=== PATIENT | male | born 1960 | race Caucasian/White ===

== ENCOUNTER 2017-08-14 21:00 | Emergency (ER) | payer MEDICAID ==
[~2017-08-14] VITALS: Ht 172.7 cm; Wt 84.1 kg
[~2017-08-14 21:00] MED LIST: BLEOS OP; IBUP-812 PO; NO HOME MEDS; ONDA8TAB9 PO; ZES10T PO; [UNRECOGNIZED DRUG - CODE] PO
[2017-08-14] MEDS ORDERED: TETanus/Pertussis (Acell)/Diphther VAC/PF (Tdap-Adult) 0.5ml syringe IM ONE (21:25)
[2017-08-14] MEDS ORDERED: morphine 4 MG/ML inj SYRINge IM ONE (21:35)
[2017-08-14] MEDS ORDERED: diphenhydrAMINE 50 mg/ml inj IM ONE (21:50)
[2017-08-14] MEDS ORDERED: CefTRIAXone 250MG IM Kit w/LIDOcaine IM ONE (21:50)
[2017-08-14] MEDS ORDERED: diphenhydrAMINE 50 mg/ml inj IV ONE (22:10)
[2017-08-14] MEDS ORDERED: morphine 4 MG/ML inj SYRINge IV ONE (22:10)
[2017-08-14] MEDS ORDERED: clindamycin 600mg/D5W 50ml 50 ML IV ONE (22:10)
[2017-08-14] MEDS ORDERED: HYDR-3965 PO (22:23)
[2017-08-14] MEDS ORDERED: [UNRECOGNIZED DRUG - OTHER] PO (22:23)
[2017-08-14] MEDS ORDERED: HYDROcodone/acetaminophen 5mg/325mg tablet PO ONE (23:40)
[2017-08-14 23:59] VITALS: BP 172/105
== END 2017-08-15 00:03 | disposition home or self-care (01) ==
LOC: ER 21:02
DX: S92.312B Displaced fracture of first metatarsal bone, left foot, initial encounter for open fracture (principal); I10 Essential (primary) hypertension; F12.10 Cannabis abuse, uncomplicated; F15.10 Other stimulant abuse, uncomplicated; Z88.6 Allergy status to analgesic agent; Z88.0 Allergy status to penicillin; W20.8XXA Other cause of strike by thrown, projected or falling object, initial encounter; Y93.89 Activity, other specified; Y92.89 Other specified places as the place of occurrence of the external cause; Y99.8 Other external cause status
CPT/HCPCS: 73630; 90471; 90715; 96365; 96372; 99284; J0696; J1200; J2270; J3490

== ENCOUNTER 2018-05-04 07:20 | Emergency (ER) | payer MEDICAID ==
[~2018-05-04] VITALS: Ht 172.7 cm; Wt 72.7 kg
[~2018-05-04 07:20] MED LIST changes: +[UNRECOGNIZED DRUG - OTHER] PO
[2018-05-04] MEDS ORDERED: aspirin 81mg tab.chew PO ONE (07:45)
[2018-05-04 08:19] LABS: BASOPHILS % (AUTO) 0.6 % (0-1); EOSINOPHILS # (AUTO) 0.2 X10'3 (0-0.9); EOSINOPHILS % (AUTO) 3.3 % (0-6); HEMATOCRIT 39.6 % (42.0-52.0); MEAN CORPUSCULAR HEMOGLOBIN 29.1 PG (27.0-31.0); MEAN CORPUSCULAR HGB CONC 32.9 % (33.0-36.5); MEAN CORPUSCULAR VOLUME 88.3 FL (78-98); MEAN PLATELET VOLUME 8.4 FL (7.4-10.4); MONOCYTES # (AUTO) 0.4 X10'3 (0-0.9); NEUTROPHILS # (AUTO) 3.6 X10'3 (1.8-7.7); NEUTROPHILS % (AUTO) 68.1 % (42-75); PLATELET COUNT 167 X10'3 (140-440); RED BLOOD COUNT 4.49 X10'6 (4.70-6.10); RED CELL DISTRIBUTION WIDTH 14.6 % (11.5-14.5); WHITE BLOOD COUNT 5.2 X10'3 (4.5-11.0)
[2018-05-04 08:50] LABS: ALANINE AMINOTRANSFERASE 40 U/L (12-78); ALBUMIN 3.3 G/DL (3.4-5.0); ALBUMIN/GLOBULIN RATIO 0.9 (1.1-1.5); ALKALINE PHOSPHATASE 145 IU/L (46-116); ANION GAP 10 (8-16); ASPARTATE AMINO TRANSFERASE 41 U/L (10-37); BILIRUBIN,TOTAL 0.7 MG/DL (0.1-1.0); BLOOD UREA NITROGEN 27 MG/DL (7-18); BUN/CREATININE RATIO 24.5 (5.4-32.0); CALCIUM 8.7 MG/DL (8.5-10.1); CHLORIDE 105 MMOL/L (99-107); GLUCOSE 119 MG/DL (70-104); POTASSIUM 3.9 MMOL/L (3.5-5.1); SODIUM 137 MMOL/L (135-145); TOTAL CARBON DIOXIDE 21.8 MMOL/L (24-32); eGFR 68 ML/MIN
[2018-05-04 08:57] LABS: MAGNESIUM 1.8 MG/DL (1.5-2.4)
[2018-05-04] MEDS ORDERED: furosemide 10 MG/1 ML 10ml inj IV ONE (09:10)
[2018-05-04 09:39] VITALS: BP 150/102
[2018-05-06] MEDS ORDERED: POTA10TA36 PO (22:20)
[2018-05-06] MEDS ORDERED: FURO-150 PO (22:20)
[2018-05-10] MEDS ORDERED: LEVO500T2 PO (13:52)
[2018-05-10] MEDS ORDERED: LISI2.5T2 PO (13:52)
[2018-05-10] MEDS ORDERED: COR3.125T PO (13:52)
[2018-05-10] MEDS ORDERED: NICO-731 TOP (13:52)
[2018-05-10] MEDS ORDERED: ASPI-1071 PO (13:52)
[2018-05-10] MEDS ORDERED: FURO-150 PO (14:02)
== END 2018-05-04 09:41 | disposition home or self-care (01) ==
LOC: ER 07:21
DX: I11.0 Hypertensive heart disease with heart failure (principal); I50.9 Heart failure, unspecified; F12.90 Cannabis use, unspecified, uncomplicated; F15.90 Other stimulant use, unspecified, uncomplicated; F17.200 Nicotine dependence, unspecified, uncomplicated; Z60.2 Problems related to living alone; Z88.0 Allergy status to penicillin; Z88.6 Allergy status to analgesic agent; Z79.899 Other long term (current) drug therapy
CPT/HCPCS: 36415; 71045; 80053; 83735; 83880; 84484; 85025; 87502; 87503; 93005; 99284

== ENCOUNTER 2018-06-19 01:53 | Emergency (ER) | payer MEDICAID ==
[~2018-06-19] VITALS: Ht 167.6 cm; Wt 75.0 kg
[~2018-06-19 01:53] MED LIST changes: +ASPI-1071 PO; -BLEOS OP; +COR3.125T PO; +FURO-150 PO; -IBUP-812 PO; +LISI2.5T2 PO; +NICO-731 TOP; -NO HOME MEDS; -ONDA8TAB9 PO; +POTA10TA36 PO; -ZES10T PO; -[UNRECOGNIZED DRUG - CODE] PO; -[UNRECOGNIZED DRUG - OTHER] PO
--- NOTE | 2018-06-19 02:55 | NUR ---
Pt given ice pack for his left wrist and pillow to elevate it. He reports severe pain of 10 out of 10. states when he first inijured it around 9 pm it did not hurt very bad, but over the fast few hrs it has become severe. Pt awaiting er md.
[2018-06-19] MEDS ORDERED: ibuprofen tablet 400 MG TABLET PO ONE (03:15)
[2018-06-19] MEDS ORDERED: acetaminophen 325mg tablet PO ONE (03:15)
[2018-06-19 03:39] VITALS: BP 147/100
--- NOTE | 2018-06-19 03:53 | NUR ---
Javed called for Pt to have ride back to his storage unit on [facility]. He does not have anyone to transport him for discharge. Pt reports he is still in a lot of pain. Given tylenol and ibuprofen prior to dc. Pt reporting at time of DC that he would like to speak to the doctor again about his home medications. He was discharged at the end of April with many medications and many for his heart and CHF and he has run out of them. He tells me he has an appt soon w/Dr. De Leon to "go over all of the medications". I updated Dr. Green who reports the Pt will need to f/u with PCP for this. Pt with stable vs.
== END 2018-06-19 04:00 | disposition home or self-care (01) ==
LOC: ER 01:54
DX: M25.532 Pain in left wrist (principal); I11.0 Hypertensive heart disease with heart failure; I50.9 Heart failure, unspecified; F12.90 Cannabis use, unspecified, uncomplicated; F15.90 Other stimulant use, unspecified, uncomplicated; Z88.0 Allergy status to penicillin; Z88.5 Allergy status to narcotic agent; Z79.82 Long term (current) use of aspirin; Z79.899 Other long term (current) drug therapy; Z60.2 Problems related to living alone; V29.9XXA Motorcycle rider (driver) (passenger) injured in unspecified traffic accident, initial encounter; Y93.89 Activity, other specified; Y92.488 Other paved roadways as the place of occurrence of the external cause; Y99.8 Other external cause status
CPT/HCPCS: 29125; 73110; 99283

== ENCOUNTER 2018-06-30 04:11 | Emergency (ER) | payer MEDICAID ==
[~2018-06-30] VITALS: Ht 172.7 cm; Wt 68.2 kg
[2018-06-30] MEDS ORDERED: ibuprofen tablet 400 MG TABLET PO ONE (04:45)
[2018-06-30] MEDS ORDERED: sulfamethoxazole/trimethoprim DS (800/160mg) tablet PO ONE (04:45)
[2018-06-30] MEDS ORDERED: SULF1TAB49 PO (04:53)
--- NOTE | 2018-06-30 05:00 | NUR ---
dr vogel lanced left middle finger that appeared to have apus pocket in it
[2018-06-30 05:05] VITALS: BP 134/69
== END 2018-06-30 05:08 | disposition home or self-care (01) ==
LOC: ER 04:11
DX: L02.512 Cutaneous abscess of left hand (principal); I11.0 Hypertensive heart disease with heart failure; I50.9 Heart failure, unspecified; F12.90 Cannabis use, unspecified, uncomplicated; F15.90 Other stimulant use, unspecified, uncomplicated; Z88.6 Allergy status to analgesic agent; Z88.0 Allergy status to penicillin; Z79.82 Long term (current) use of aspirin
CPT/HCPCS: 10060; 26010; 99283

== ENCOUNTER 2018-07-14 16:55 | Emergency (ER) | payer MEDICAID ==
[~2018-07-14] VITALS: Ht 172.7 cm; Wt 70.4 kg
[2018-07-14 18:16] LABS: BASOPHILS % (AUTO) 0.8 % (0-1); EOSINOPHILS # (AUTO) 0.2 X10'3 (0-0.9); EOSINOPHILS % (AUTO) 3.2 % (0-6); HEMATOCRIT 37.9 % (42.0-52.0); HEMOGLOBIN 12.4 g/dl (14.0-17.9); LYMPHOCYTES % (AUTO) 17.4 % (21-51); MEAN CORPUSCULAR HEMOGLOBIN 28.5 PG (27.0-31.0); MEAN CORPUSCULAR HGB CONC 32.7 g/dL (33.0-36.5); MEAN CORPUSCULAR VOLUME 87.1 FL (78-98); MEAN PLATELET VOLUME 7.9 FL (7.4-10.4); MONOCYTES # (AUTO) 0.6 X10'3 (0-0.9); MONOCYTES % (AUTO) 9.7 % (2-12); NEUTROPHILS # (AUTO) 3.9 X10'3 (1.8-7.7); NEUTROPHILS % (AUTO) 68.9 % (42-75); PLATELET COUNT 186 X10'3 (140-440); RED BLOOD COUNT 4.35 X10'6 (4.70-6.10); RED CELL DISTRIBUTION WIDTH 15.7 % (11.5-14.5); WHITE BLOOD COUNT 5.7 X10'3 (4.5-11.0)
[2018-07-14] MEDS ORDERED: nitroGLYCERIN 0.4mg SUBLingual tab SL PRN (18:20)
[2018-07-14] MEDS ORDERED: furosemide 10 MG/1 ML 10ml inj IV ONE (18:20)
[2018-07-14] MEDS ORDERED: aspirin 81mg tab.chew PO ONE (18:25)
[2018-07-14 18:31] LABS: INR 1.1 INR; PARTIAL THROMBOPLASTIN TIME 27 SECONDS (22-32); PROTHROMBIN TIME 11.5 SECONDS (9.0-12.0)
[2018-07-14 18:37] LABS: ALANINE AMINOTRANSFERASE 33 U/L (12-78); ALBUMIN 3.4 G/DL (3.4-5.0); ALBUMIN/GLOBULIN RATIO 0.9 (1.1-1.5); ALKALINE PHOSPHATASE 150 IU/L (46-116); ANION GAP 11 (8-16); ASPARTATE AMINO TRANSFERASE 35 U/L (10-37); BILIRUBIN,TOTAL 1.2 MG/DL (0.1-1.0); BLOOD UREA NITROGEN 21 MG/DL (7-18); BUN/CREATININE RATIO 18.8 (5.4-32.0); CALCIUM 8.4 MG/DL (8.5-10.1); CHLORIDE 106 MMOL/L (99-107); CREATININE 1.12 MG/DL (0.60-1.10); GLUCOSE 110 MG/DL (70-104); SODIUM 142 MMOL/L (135-145); TOTAL CARBON DIOXIDE 25.3 MMOL/L (24-32); eGFR 67 ML/MIN
[2018-07-14] MEDS ORDERED: FURO-150 PO (19:26)
[2018-07-14 19:29] VITALS: BP 155/112
== END 2018-07-14 19:37 | disposition home or self-care (01) ==
LOC: ER 16:55
DX: I11.0 Hypertensive heart disease with heart failure (principal); I50.9 Heart failure, unspecified; F12.90 Cannabis use, unspecified, uncomplicated; F15.90 Other stimulant use, unspecified, uncomplicated; Z88.6 Allergy status to analgesic agent; Z88.0 Allergy status to penicillin; Z79.82 Long term (current) use of aspirin
CPT/HCPCS: 36415; 71045; 80053; 83880; 84484; 85025; 85610; 85730; 93005; 96374; 99284; J1940

== ENCOUNTER 2018-07-25 04:02 | Inpatient (IN) | payer MEDICAID | END 2018-07-30 14:05 | disposition home or self-care (01) | LOC: ER 04:02 → ED HOLD 08:09 → S STAY 12:39 → SUR 3N 16:59 ==

== ENCOUNTER 2019-01-16 22:52 | Emergency (ER) | payer MEDICAID ==
[~2019-01-16] VITALS: Ht 175.3 cm; Wt 65.0 kg
[~2019-01-16 22:52] MED LIST changes: +ALBU6.7H9 INH; -ASPI-1071 PO; +ASPI-611 PO; +CARV6.253 PO; -COR3.125T PO; -NICO-731 TOP
[2019-01-17] MEDS ORDERED: ACET-2615 PO (01:48)
[2019-01-17] MEDS ORDERED: SULF1TAB49 PO (01:48)
[2019-01-17] MEDS ORDERED: ondansetron 4mg rapidly disintigrating tab PO ONE (01:50)
[2019-01-17] MEDS ORDERED: acetaminophen 325mg tablet PO ONE (01:50)
[2019-01-17] MEDS ORDERED: sulfamethoxazole/trimethoprim DS (800/160mg) tablet PO ONE (01:50)
[2019-01-17] MEDS ORDERED: ibuprofen tablet 400 MG TABLET PO ONE (01:50)
[2019-01-17 02:16] VITALS: BP 172/108
== END 2019-01-17 02:15 | disposition home or self-care (01) ==
LOC: ER 22:53
DX: S90.561A Insect bite (nonvenomous), right ankle, initial encounter (principal); L03.115 Cellulitis of right lower limb; I11.0 Hypertensive heart disease with heart failure; I50.9 Heart failure, unspecified; J44.9 Chronic obstructive pulmonary disease, unspecified; F12.90 Cannabis use, unspecified, uncomplicated; F15.90 Other stimulant use, unspecified, uncomplicated; Z86.19 Personal history of other infectious and parasitic diseases; Z60.2 Problems related to living alone; Z88.0 Allergy status to penicillin; Z88.5 Allergy status to narcotic agent; Z79.82 Long term (current) use of aspirin; Z79.899 Other long term (current) drug therapy
CPT/HCPCS: 99284; J2405

== ENCOUNTER 2020-08-02 01:11 | Inpatient (IN) | payer MEDICAID ==
--- NOTE | 2019-08-03 19:00 | NUR ---
received bedside report from mimi rn, pt resting quietly
[~2020-08-02] VITALS: Ht 172.7 cm; Wt 68.2 kg
[2020-08-02 02:02] LABS: ALANINE AMINOTRANSFERASE 35 U/L (12-78); ALBUMIN 3.7 G/DL (3.4-5.0); ALBUMIN/GLOBULIN RATIO 0.9 (1.1-1.5); ALKALINE PHOSPHATASE 133 IU/L (46-116); ANION GAP 7 (8-16); ASPARTATE AMINO TRANSFERASE 38 U/L (10-37); BILIRUBIN,TOTAL 0.8 MG/DL (0.1-1.0); BLOOD UREA NITROGEN 29 MG/DL (7-18); BUN/CREATININE RATIO 24.8 (5.4-32.0); CALCIUM 9.1 MG/DL (8.5-10.1); CHLORIDE 103 MMOL/L (99-107); CREATININE 1.17 MG/DL (0.60-1.10); GLUCOSE 113 MG/DL (70-104); POTASSIUM 4.3 MMOL/L (3.5-5.1); SODIUM 138 MMOL/L (135-145); TOTAL CARBON DIOXIDE 28.1 MMOL/L (24-32); TOTAL PROTEIN 7.6 G/DL (6.4-8.2); eGFR 63 ML/MIN
[2020-08-02 02:10] LABS: BASOPHILS # (AUTO) 0.1 X10'3 (0-0.2); EOSINOPHILS # (AUTO) 0.2 X10'3 (0-0.9); LYMPHOCYTES # (AUTO) 1.3 X10'3 (1.1-4.8); MEAN CORPUSCULAR HGB CONC 33.3 g/dL (33.0-36.5); MEAN PLATELET VOLUME 8.4 FL (7.4-10.4); MONOCYTES # (AUTO) 0.5 X10'3 (0-0.9); MONOCYTES % (AUTO) 8.2 % (2-12); WHITE BLOOD COUNT 5.9 X10'3 (4.5-11.0)
[2020-08-02] MEDS ORDERED: aspirin 81mg tab.chew PO ONE (02:10)
[2020-08-02] MEDS ORDERED: furosemide 10 MG/1 ML 10ml inj IV ONE (02:10)
[2020-08-02 02:12] LABS: BASOPHILS % (AUTO) 1.4 % (0-1); EOSINOPHILS % (AUTO) 2.9 % (0-6); HEMATOCRIT 39.3 % (42.0-52.0); HEMOGLOBIN 13.1 g/dl (14.0-17.9); LYMPHOCYTES % (AUTO) 22.4 % (21-51); MEAN CORPUSCULAR HEMOGLOBIN 29.3 PG (27.0-31.0); NEUTROPHILS # (AUTO) 3.9 X10'3 (1.8-7.7); NEUTROPHILS % (AUTO) 65.1 % (42-75); RED BLOOD COUNT 4.46 X10'6 (4.70-6.10)
[2020-08-02] MEDS ORDERED: furosemide 40mg/4ml inj IV ONE ×2 (02:20→10:10)
[2020-08-02 02:41] LABS: PLATELET COUNT 199 X10'3 (140-440)
[2020-08-02] MEDS ORDERED: potassium Cl 40MEQ/1/2NS 520ml 520 ML IV PRN ×2 (03:30)
[2020-08-02] MEDS ORDERED: mag hydrox/Alum hydrox/simeth 30ml oral suspension PO PRN (03:30)
[2020-08-02] MEDS ORDERED: potassium Cl 20 mEq SR tablet PO PRN ×2 (03:30)
[2020-08-02] MEDS ORDERED: magnesium hydroxide 30ml (MOM) UD suspension PO PRN (03:30)
[2020-08-02] MEDS ORDERED: ondansetron/PF 4mg/2ml inj IV PRN (03:30)
[2020-08-02] MEDS ORDERED: acetaminophen 325mg tablet PO PRN (03:30)
--- NOTE | 2020-08-02 03:46 | NUR ---
Patient sitting up on side of bed. Patient given Lasix 40 mg IV and updated on plan of care. Patient verbalized understanding. patient stated he quit taking his medication because he felt better. Patient denies pain.
--- NOTE | 2020-08-02 04:49 | NUR ---
RN gave report to RN Suha
[2020-08-02 05:16] VITALS: BP 138/98
--- NOTE | 2020-08-02 06:00 | NUR ---
RECEIVED REPORT FROM OSCAR RN, INTRODUCED MYSELF TO PT, UPDATED THE BOARD
[2020-08-02 06:48] VITALS: BP 144/92
[2020-08-02] MEDS: K and/or MAG REPLACEMENT MC SCH ×3 (07:08→20:00)
[2020-08-02] MEDS: carvedilol 6.25mg tablet PO SCH ×2 (07:09→21:10)
[2020-08-02] MEDS: aspirin 81mg tablet.DR PO SCH (07:09)
[2020-08-02] MEDS: potassium chloride 10mEq ER tablet PO SCH (07:09)
[2020-08-02] MEDS ORDERED: lisinopril 2.5mg tablet PO SCH (08:00)
[2020-08-02] MEDS ORDERED: enoxaparin 40mg/0.4ml syringe SUBCUT SCH (08:00)
[2020-08-02] MEDS ORDERED: furosemide 20MG tablet PO SCH (08:00)
[2020-08-02] MEDS ORDERED: enoxaparin 30mg/0.3ml syringe SUBCUT SCH (08:00)
[2020-08-02] MEDS: albuterol 2.5 MG/3 ML nebule NEB SCH ×3 (09:00→21:00)
--- NOTE | 2020-08-02 09:53 | NUR ---
PAGER ID: [phone] MESSAGE: [id number] CALE. PT IS EXTREMELY ANXIOUS. CAN WE HAVE SOMETHING FOR ANXIETY PLEASE. LUBA MCCOY
[2020-08-02] MEDS ORDERED: LORazepam 2 mg/ml vial IV ONE (10:00)
[2020-08-02] MEDS ORDERED: LORazepam 2 mg/ml vial IV PRN (10:00)
[2020-08-02] MEDS ORDERED: magnesium 4gm in 100ml NS 100 ML IV PRN (10:10)
[2020-08-02] MEDS ORDERED: metoprolol tartrate 1mg/ml inj IV PRN (10:10)
[2020-08-02] MEDS ORDERED: magnesium Cl slow-release 64mg tablet PO PRN (10:10)
[2020-08-02] MEDS ORDERED: nitroGLYCERIN 0.4mg SUBLingual tab SL PRN (10:10)
[2020-08-02] MEDS ORDERED: aminophylline 250mg/10ml inj. IV PRN (10:10)
[2020-08-02] MEDS ORDERED: regadenoson 0.4mg/5ml syringe IV PRN (10:10)
--- NOTE | 2020-08-02 10:33 | NUR ---
PAGER ID: [phone] MESSAGE: [id number] MADSENGLORIA BAIRD, THEY CAN NOT DUE STRESS TEST TODAY DUE TO THE PT HAVING CAFFEINE TODAY. MAY THE PT EAT AND BE NPO AFTER MIDNIGHT? PT ALSO RECEIVED FUROSEMIDE THIS MORNING DO YOU STILL WANT ME TO GIVE THE 2ND DOSE OF FUROSEMIDE?
[2020-08-02] MEDS: spironolactone 25 MG tablet PO SCH (10:50)
[2020-08-02 11:26] LABS: CLARITY,URINE CLEAR (Clear); COLOR,URINE YELLOW (Yellow); GLUCOSE, URINE NEGATIVE (Neg); KETONES,URINE NEGATIVE (Neg); LEUKOCYTE ESTERASE ,URINE NEGATIVE (Neg); NITRITES, URINE NEGATIVE (Neg); OCCULT BLOOD,URINE NEGATIVE (Neg); PROTEIN,URINE NEGATIVE (Neg); UROBILINOGEN,URINE 0.2 E.U/dL (0.2-1.0)
[2020-08-02 11:29] VITALS: BP 116/88
[2020-08-02 11:29] LABS: UA COLLECTION TYPE NON-SPECIFIED
[2020-08-02 16:23] VITALS: BP 104/80
[2020-08-02 18:00] VITALS: BP 104/70
[2020-08-02] MEDS: heparin, porcine 5000 units/ml vial SQ SCH (21:10)
[2020-08-02] MEDS: furosemide 40mg/4ml inj IV SCH (21:11)
[2020-08-02 22:00] VITALS: BP 109/66
[2020-08-03] VITALS (13 sets, daily range): BP systolic 92–149; BP diastolic 60–90
[2020-08-03] MEDS: albuterol 2.5 MG/3 ML nebule NEB SCH ×4 (03:00→21:02)
--- NOTE | 2020-08-03 06:11 | NUR ---
received bedside report from evelio rn, pt resting quietly
--- NOTE | 2020-08-03 06:13 | NUR ---
REPORT GIVEN TO AVERY VINSON ,NO ACUTE DISTRESS AT THIS TIME.
[2020-08-03 06:46] LABS: BASOPHILS # (AUTO) 0.1 X10'3 (0-0.2); BASOPHILS % (AUTO) 1.3 % (0-1); EOSINOPHILS # (AUTO) 0.2 X10'3 (0-0.9); EOSINOPHILS % (AUTO) 4.4 % (0-6); HEMATOCRIT 37.8 % (42.0-52.0); HEMOGLOBIN 12.7 g/dl (14.0-17.9); LYMPHOCYTES # (AUTO) 1.2 X10'3 (1.1-4.8); LYMPHOCYTES % (AUTO) 21.6 % (21-51); MEAN CORPUSCULAR HGB CONC 33.7 g/dL (33.0-36.5); MEAN CORPUSCULAR VOLUME 86.1 FL (78-98); MONOCYTES # (AUTO) 0.5 X10'3 (0-0.9); MONOCYTES % (AUTO) 9.2 % (2-12); NEUTROPHILS # (AUTO) 3.5 X10'3 (1.8-7.7); NEUTROPHILS % (AUTO) 63.5 % (42-75); PLATELET COUNT 219 X10'3 (140-440); RED BLOOD COUNT 4.39 X10'6 (4.70-6.10); RED CELL DISTRIBUTION WIDTH 13.7 % (11.5-14.5); WHITE BLOOD COUNT 5.6 X10'3 (4.5-11.0)
[2020-08-03 07:18] LABS: ALANINE AMINOTRANSFERASE 34 U/L (12-78); ALBUMIN 3.2 G/DL (3.4-5.0); ALBUMIN/GLOBULIN RATIO 0.9 (1.1-1.5); ALKALINE PHOSPHATASE 115 IU/L (46-116); ANION GAP 9 (8-16); ASPARTATE AMINO TRANSFERASE 32 U/L (10-37); BILIRUBIN,TOTAL 0.9 MG/DL (0.1-1.0); BLOOD UREA NITROGEN 36 MG/DL (7-18); CALCIUM 8.8 MG/DL (8.5-10.1); CHLORIDE 103 MMOL/L (99-107); CREATININE 1.24 MG/DL (0.60-1.10); GLUCOSE 99 MG/DL (70-104); MAGNESIUM 2.1 MG/DL (1.5-2.4); PHOSPHORUS 4.3 MG/DL (2.3-4.5); POTASSIUM 4.2 MMOL/L (3.5-5.1); SODIUM 140 MMOL/L (135-145); TOTAL CARBON DIOXIDE 27.8 MMOL/L (24-32); TOTAL PROTEIN 6.9 G/DL (6.4-8.2); eGFR 59 ML/MIN
[2020-08-03] MEDS: K and/or MAG REPLACEMENT MC SCH ×4 (07:35→20:00)
[2020-08-03] MEDS: furosemide 40mg/4ml inj IV SCH ×2 (09:07→20:35)
[2020-08-03] MEDS: carvedilol 6.25mg tablet PO SCH ×2 (09:08→20:35)
[2020-08-03] MEDS: aspirin 81mg tablet.DR PO SCH (09:08)
[2020-08-03] MEDS: heparin, porcine 5000 units/ml vial SQ SCH ×2 (09:08→20:35)
[2020-08-03] MEDS: potassium chloride 10mEq ER tablet PO SCH (09:08)
[2020-08-03] MEDS: spironolactone 25 MG tablet PO SCH (09:08)
[2020-08-03] MEDS: lisinopril 20mg tablet PO SCH (09:09)
--- NOTE | 2020-08-03 12:11 | NUR ---
spoke with pt about his life vest and pt stated that he was told to send it back. Pt's dc orders are on hold until pt receives a new life vest per Dr Covarrubias. Dee in case management was notified and she stated that it would probably be tomorrow before they could get him a new life vest.
[2020-08-04 02:00] VITALS: BP 113/74
[2020-08-04] MEDS: albuterol 2.5 MG/3 ML nebule NEB SCH ×4 (03:23→20:49)
--- NOTE | 2020-08-04 06:02 | NUR ---
patient alert and oriented. resting on bed quietly. request breathing treatment during shift.
--- NOTE | 2020-08-04 06:51 | NUR ---
RECEIVED BEDSIDE REPORT FROM KAIA VARELA
[2020-08-04 06:56] LABS: BASOPHILS # (AUTO) 0.1 X10'3 (0-0.2); BASOPHILS % (AUTO) 1.8 % (0-1); EOSINOPHILS # (AUTO) 0.2 X10'3 (0-0.9); EOSINOPHILS % (AUTO) 4.3 % (0-6); HEMATOCRIT 37.4 % (42.0-52.0); HEMOGLOBIN 12.6 g/dl (14.0-17.9); LYMPHOCYTES # (AUTO) 1.3 X10'3 (1.1-4.8); LYMPHOCYTES % (AUTO) 23.8 % (21-51); MEAN CORPUSCULAR HEMOGLOBIN 28.9 PG (27.0-31.0); MEAN CORPUSCULAR HGB CONC 33.7 g/dL (33.0-36.5); MEAN CORPUSCULAR VOLUME 85.9 FL (78-98); MEAN PLATELET VOLUME 7.7 FL (7.4-10.4); MONOCYTES # (AUTO) 0.6 X10'3 (0-0.9); NEUTROPHILS # (AUTO) 3.2 X10'3 (1.8-7.7); NEUTROPHILS % (AUTO) 59.1 % (42-75); PLATELET COUNT 223 X10'3 (140-440); RED BLOOD COUNT 4.36 X10'6 (4.70-6.10); RED CELL DISTRIBUTION WIDTH 13.9 % (11.5-14.5); WHITE BLOOD COUNT 5.4 X10'3 (4.5-11.0)
[2020-08-04 07:07] VITALS: BP 115/85
[2020-08-04 07:11] LABS: ALANINE AMINOTRANSFERASE 33 U/L (12-78); ALBUMIN 3.3 G/DL (3.4-5.0); ALBUMIN/GLOBULIN RATIO 0.9 (1.1-1.5); ALKALINE PHOSPHATASE 111 IU/L (46-116); ANION GAP 8 (8-16); ASPARTATE AMINO TRANSFERASE 35 U/L (10-37); BILIRUBIN,TOTAL 0.8 MG/DL (0.1-1.0); BLOOD UREA NITROGEN 43 MG/DL (7-18); BUN/CREATININE RATIO 33.1 (5.4-32.0); CALCIUM 8.8 MG/DL (8.5-10.1); CHLORIDE 102 MMOL/L (99-107); GLUCOSE 103 MG/DL (70-104); MAGNESIUM 2.1 MG/DL (1.5-2.4); PHOSPHORUS 4.3 MG/DL (2.3-4.5); POTASSIUM 4.2 MMOL/L (3.5-5.1); SODIUM 138 MMOL/L (135-145); TOTAL CARBON DIOXIDE 28.1 MMOL/L (24-32); eGFR 56 ML/MIN
[2020-08-04] MEDS: K and/or MAG REPLACEMENT MC SCH ×4 (07:17→20:00)
--- NOTE | 2020-08-04 07:27 | NUR ---
PAGER ID: [phone] MESSAGE: [phone] CALE BAIRD IS REQUESTING A NICOTINE PATCH
[2020-08-04] MEDS: aspirin 81mg tablet.DR PO SCH (08:10)
[2020-08-04] MEDS: potassium chloride 10mEq ER tablet PO SCH (08:11)
[2020-08-04] MEDS: spironolactone 25 MG tablet PO SCH (08:11)
[2020-08-04] MEDS: lisinopril 20mg tablet PO SCH (08:11)
[2020-08-04] MEDS: carvedilol 6.25mg tablet PO SCH ×2 (08:11→21:13)
[2020-08-04] MEDS: furosemide 40mg/4ml inj IV SCH ×2 (08:11→21:13)
[2020-08-04] MEDS: heparin, porcine 5000 units/ml vial SQ SCH ×2 (08:12→21:13)
[2020-08-04] MEDS: nicotine 14mg patch - 24hr TD SCH (11:04)
[2020-08-04 12:00] VITALS: BP 103/73
[2020-08-04 16:00] VITALS: BP 105/77
[2020-08-04 18:00] VITALS: BP 115/75
--- NOTE | 2020-08-04 18:40 | NUR ---
REPORT RECEIVED FROM AVERY VINSON. QUESTIONS ANSWERED AND PT RESTING QUIETLY ON BED
[2020-08-04 22:00] VITALS: BP 102/68
[2020-08-05 02:00] VITALS: BP 108/75
[2020-08-05] MEDS: albuterol 2.5 MG/3 ML nebule NEB SCH (03:00)
--- NOTE | 2020-08-05 06:31 | NUR ---
report given to AVERY Camacho. pt alert and oriented. no acute distress
--- NOTE | 2020-08-05 06:31 | NUR ---
Patient in room PCU 3012. I have received report from AVERY Borden and had the opportunity to ask questions and assume patient care. Patient awake in bed and in no acute distress.
[2020-08-05 07:00] VITALS: BP 111/80
[2020-08-05] MEDS: heparin, porcine 5000 units/ml vial SQ SCH (07:37)
[2020-08-05] MEDS: nicotine 14mg patch - 24hr TD SCH (07:37)
[2020-08-05] MEDS: furosemide 40mg/4ml inj IV SCH (07:37)
[2020-08-05] MEDS: lisinopril 20mg tablet PO SCH (07:38)
[2020-08-05] MEDS: aspirin 81mg tablet.DR PO SCH (07:38)
[2020-08-05 07:39] VITALS: BP_SYST 120
[2020-08-05] MEDS: carvedilol 6.25mg tablet PO SCH (07:39)
[2020-08-05] MEDS: spironolactone 25 MG tablet PO SCH (07:39)
[2020-08-05] MEDS: potassium chloride 10mEq ER tablet PO SCH (07:39)
[2020-08-05 07:56] LABS: BASOPHILS # (AUTO) 0.1 X10'3 (0-0.2); EOSINOPHILS # (AUTO) 0.2 X10'3 (0-0.9); HEMATOCRIT 40.1 % (42.0-52.0); HEMOGLOBIN 13.2 g/dl (14.0-17.9); LYMPHOCYTES # (AUTO) 1.2 X10'3 (1.1-4.8); LYMPHOCYTES % (AUTO) 19.9 % (21-51); MEAN CORPUSCULAR HEMOGLOBIN 28.5 PG (27.0-31.0); MEAN CORPUSCULAR VOLUME 86.4 FL (78-98); MEAN PLATELET VOLUME 8.4 FL (7.4-10.4); MONOCYTES # (AUTO) 0.7 X10'3 (0-0.9); MONOCYTES % (AUTO) 12.3 % (2-12); NEUTROPHILS # (AUTO) 3.8 X10'3 (1.8-7.7); NEUTROPHILS % (AUTO) 62.8 % (42-75); PLATELET COUNT 271 X10'3 (140-440); RED BLOOD COUNT 4.64 X10'6 (4.70-6.10); RED CELL DISTRIBUTION WIDTH 13.9 % (11.5-14.5); WHITE BLOOD COUNT 6.1 X10'3 (4.5-11.0)
[2020-08-05] MEDS: K and/or MAG REPLACEMENT MC SCH ×2 (08:00)
[2020-08-05 08:44] LABS: ALANINE AMINOTRANSFERASE 38 U/L (12-78); ALBUMIN 3.4 G/DL (3.4-5.0); ALBUMIN/GLOBULIN RATIO 0.9 (1.1-1.5); ALKALINE PHOSPHATASE 113 IU/L (46-116); ANION GAP 6 (8-16); ASPARTATE AMINO TRANSFERASE 39 U/L (10-37); BILIRUBIN,TOTAL 0.7 MG/DL (0.1-1.0); BLOOD UREA NITROGEN 46 MG/DL (7-18); BUN/CREATININE RATIO 34.3 (5.4-32.0); CALCIUM 9.1 MG/DL (8.5-10.1); CHLORIDE 101 MMOL/L (99-107); CREATININE 1.34 MG/DL (0.60-1.10); GLUCOSE 97 MG/DL (70-104); MAGNESIUM 2.4 MG/DL (1.5-2.4); PHOSPHORUS 4.8 MG/DL (2.3-4.5); SODIUM 137 MMOL/L (135-145); TOTAL CARBON DIOXIDE 29.8 MMOL/L (24-32); TOTAL PROTEIN 7.3 G/DL (6.4-8.2); eGFR 54 ML/MIN
--- NOTE | 2020-08-05 12:36 | NUR ---
Patient stable for discharge per MD orders. All discharge instructions reviewed and questions answered appropriately. Belongings collected and sent with the patient. Patient educated on LifeVest prior to discharge. No new prescriptions. PIV discontinued and cannula intact. tow motor mechanic discontinued. Patient left via wheelchair and was wheeled down to the lobby and left via private vehicle.
--- NOTE | 2020-08-06 15:27 | NUR ---
CASE MANAGEMENT DISCHARGE FOLLOW UP: T/c to pt, spoke with Spencer. He states that pt is out at the moment, left message requesting callback, advised that if pt requires medical assistance to contact PCP or ED, Spencer states he will pass the message along. Addendum: 08/06/20 at 1600 by Sonali Smith RN [id number] Received return call from pt. Reports that he is feeling "not too bad," admits to some SOB; denies CP, fever. Verbalizes understanding of s/sx requiring further evaluation/emergent assistance. Verbalizes understanding of current medications, states that he does not have them anymore since he has not taken them in a while, states that he was not given new medications at discharged, will follow up. Verbalizes compliance with MD discharge instructions, wearing LifeVest as instructed. Verbalizes understanding of the importance in making/keeping follow-up appointments, states that he has been having problems with his PCP and wants to get a new one. 1547 T/c to Dr Covarrubias, she states pt needs to f/u with PCP and counseling department chair for medications. [address] Covarrubias's instructions, he verbalizes understanding. States no further questions at this time. Advised pt that if he experiences CP, increasing SOB/difficulty breathing to seek emergent care, pt states verbalizes understanding.
== END 2020-08-05 12:36 | disposition home or self-care (01) | DRG 194 ==
LOC: ER 01:12 → ED HOLD 03:29 → PCU 3S 04:30
PROVIDERS: ADMIT Internal Medicine; ATTEND Family Medicine
PROC: 4A02XM4 Measurement of Cardiac Total Activity, External Approach (ICD-10-PCS; principal; 2020-08-03)
PROC: 3E073KZ Introduction of Other Diagnostic Substance into Coronary Artery, Percutaneous Approach (ICD-10-PCS; 2020-08-03)
DX: I13.0 Hypertensive heart and chronic kidney disease with heart failure and stage 1 through stage 4 chronic kidney disease, or unspecified chronic kidney disease (principal); I21.A1 Myocardial infarction type 2; I50.23 Acute on chronic systolic (congestive) heart failure; J44.9 Chronic obstructive pulmonary disease, unspecified; N17.9 Acute kidney failure, unspecified; N18.9 Chronic kidney disease, unspecified; B19.20 Unspecified viral hepatitis C without hepatic coma; F15.10 Other stimulant abuse, uncomplicated; F17.200 Nicotine dependence, unspecified, uncomplicated; Z20.822 Contact with and (suspected) exposure to COVID-19; Z91.14 Patient's other noncompliance with medication regimen; Z88.0 Allergy status to penicillin; Z88.5 Allergy status to narcotic agent; Z79.899 Other long term (current) drug therapy; Z79.82 Long term (current) use of aspirin
CPT/HCPCS: 36415; 71045; 78452; 80053; 81003; 83735; 83880; 84100; 84484; 85025; 87081; 87635; 93005; 93017; 93306; 93308; 94640; 94760; 96374; 99285; A9500; C9803; G0378; J1644; J1650; J1940; J2060; J2785

== ENCOUNTER 2020-08-13 20:36 | Inpatient (IN) | payer MEDICAID ==
[~2020-08-13] VITALS: Ht 172.7 cm; Wt 68.2 kg
[2020-08-13 21:17] LABS: ALANINE AMINOTRANSFERASE 48 U/L (12-78); ALBUMIN 3.9 G/DL (3.4-5.0); ALBUMIN/GLOBULIN RATIO 0.9 (1.1-1.5); ALKALINE PHOSPHATASE 139 IU/L (46-116); ANION GAP 11 (8-16); ASPARTATE AMINO TRANSFERASE 46 U/L (10-37); BILIRUBIN,TOTAL 1.3 MG/DL (0.1-1.0); BLOOD UREA NITROGEN 35 MG/DL (7-18); BUN/CREATININE RATIO 25.2 (5.4-32.0); CALCIUM 9.2 MG/DL (8.5-10.1); CHLORIDE 103 MMOL/L (99-107); CREATININE 1.39 MG/DL (0.60-1.10); GLUCOSE 150 MG/DL (70-104); POTASSIUM 4.1 MMOL/L (3.5-5.1); SODIUM 139 MMOL/L (135-145); TOTAL CARBON DIOXIDE 25.5 MMOL/L (24-32); TOTAL PROTEIN 8.1 G/DL (6.4-8.2); eGFR 52 ML/MIN
[2020-08-13 21:18] LABS: BASOPHILS # (AUTO) 0.1 X10'3 (0-0.2); EOSINOPHILS # (AUTO) 0.1 X10'3 (0-0.9); EOSINOPHILS % (AUTO) 1.2 % (0-6); HEMATOCRIT 40.6 % (42.0-52.0); HEMOGLOBIN 13.5 g/dl (14.0-17.9); LYMPHOCYTES # (AUTO) 1.3 X10'3 (1.1-4.8); LYMPHOCYTES % (AUTO) 18.1 % (21-51); MEAN CORPUSCULAR HEMOGLOBIN 28.8 PG (27.0-31.0); MEAN CORPUSCULAR HGB CONC 33.3 g/dL (33.0-36.5); MEAN CORPUSCULAR VOLUME 86.4 FL (78-98); MONOCYTES # (AUTO) 0.6 X10'3 (0-0.9); MONOCYTES % (AUTO) 8.1 % (2-12); NEUTROPHILS # (AUTO) 5.1 X10'3 (1.8-7.7); NEUTROPHILS % (AUTO) 71.6 % (42-75); PLATELET COUNT 207 X10'3 (140-440); RED CELL DISTRIBUTION WIDTH 14.1 % (11.5-14.5); WHITE BLOOD COUNT 7.2 X10'3 (4.5-11.0)
[2020-08-13 22:53] LABS: ETHANOL < 0.010 GM/DL (0.0-0.010)
[2020-08-13 23:06] LABS: URINE AMPHETAMINE SCREEN POSITIVE (Neg); URINE BARBITUATE SCREEN NEGATIVE (Neg); URINE BENZODIAZEPINES SCREEN NEGATIVE (Neg); URINE CANNABINOID SCREEN NEGATIVE (Neg); URINE COCAINE SCREEN NEGATIVE (Neg); URINE METHADONE SCREEN NEGATIVE (Neg); URINE OPIATE SCREEN NEGATIVE (Neg); URINE PHENCYCLIDINE SCREEN NEGATIVE (Neg)
[2020-08-14] VITALS (7 sets, daily range): BP systolic 97–127; BP diastolic 63–97
[2020-08-14] MEDS ORDERED: aspirin 81mg tab.chew PO ONE (00:05)
[2020-08-14] MEDS ORDERED: furosemide 10 MG/1 ML 10ml inj IV ONE (00:05)
[2020-08-14] MEDS ORDERED: carvedilol 6.25mg tablet PO SCH (00:05)
[2020-08-14] MEDS ORDERED: acetaminophen 325mg tablet PO PRN (00:10)
[2020-08-14] MEDS ORDERED: potassium Cl 40MEQ/1/2NS 520ml 520 ML IV PRN ×2 (00:10)
[2020-08-14] MEDS ORDERED: ondansetron/PF 4mg/2ml inj IV PRN (00:10)
[2020-08-14] MEDS ORDERED: magnesium hydroxide 30ml (MOM) UD suspension PO PRN (00:10)
[2020-08-14] MEDS ORDERED: mag hydrox/Alum hydrox/simeth 30ml oral suspension PO PRN (00:10)
[2020-08-14] MEDS ORDERED: magnesium 2GM in 50ml NS 50 ML IV PRN (00:10)
[2020-08-14] MEDS ORDERED: potassium Cl 20 mEq SR tablet PO PRN ×2 (00:10)
[2020-08-14] MEDS ORDERED: magnesium 4gm in 100ml NS 100 ML IV PRN (00:10)
[2020-08-14] MEDS ORDERED: magnesium Cl slow-release 64mg tablet PO PRN (00:10)
[2020-08-14] MEDS ORDERED: lisinopril 2.5mg tablet PO ONE (00:20)
[2020-08-14 00:32] LABS: PARTIAL THROMBOPLASTIN TIME 27 SECONDS (22-32)
--- NOTE | 2020-08-14 06:33 | NUR ---
Patient in room PCU 3016. I have received report from Arlette VARELA and had the opportunity to ask questions and assume patient care.
--- NOTE | 2020-08-14 06:33 | NUR ---
Patient in room PCU 3016. I have received report from AVERY Chong and had the opportunity to ask questions and assume patient care.
[2020-08-14] MEDS: carvedilol 6.25mg tablet PO SCH ×2 (07:44→20:18)
[2020-08-14] MEDS: furosemide 20MG tablet PO SCH (07:44)
[2020-08-14] MEDS: aspirin 81mg tablet.DR PO SCH (07:44)
[2020-08-14] MEDS: lisinopril 2.5mg tablet PO SCH (07:44)
[2020-08-14] MEDS: K and/or MAG REPLACEMENT MC SCH ×2 (08:00→20:00)
--- NOTE | 2020-08-14 08:59 | NUR ---
Dr. Olivia unable to find primary nurse chele. Received Verbal order for magnesium lab draw as patient is pacing room having cramps.
[2020-08-14] MEDS ORDERED: albuterol 2.5 MG/3 ML nebule NEB SCH (09:00)
[2020-08-14] MEDS ORDERED: cyclobenzaprine 10mg tablet PO PRN (17:40)
--- NOTE | 2020-08-14 18:16 | NUR ---
Problems reprioritized. Patient report given, questions answered & plan of care reviewed with Arlette VARELA.
[2020-08-14] MEDS: HYDROcodone/acetaminophen 5mg/325mg tablet PO PRN (23:26)
[2020-08-15 02:00] VITALS: BP 110/81
--- NOTE | 2020-08-15 06:00 | NUR ---
Patient in room PCU 3016. I have received report from AVERY Chong and had the opportunity to ask questions and assume patient care.
--- NOTE | 2020-08-15 06:21 | NUR ---
Problems reprioritized. Patient report given, questions answered & plan of care reviewed with ANITA.
--- NOTE | 2020-08-15 06:26 | NUR ---
Patient in room PCU 3016. I have received report from Arlette VARELA and had the opportunity to ask questions and assume patient care.
[2020-08-15 07:00] VITALS: BP 111/77
[2020-08-15 07:10] LABS: BASOPHILS # (AUTO) 0.1 X10'3 (0-0.2); BASOPHILS % (AUTO) 1.3 % (0-1); EOSINOPHILS # (AUTO) 0.2 X10'3 (0-0.9); EOSINOPHILS % (AUTO) 3.8 % (0-6); HEMATOCRIT 35.8 % (42.0-52.0); LYMPHOCYTES # (AUTO) 1.4 X10'3 (1.1-4.8); LYMPHOCYTES % (AUTO) 24.7 % (21-51); MEAN CORPUSCULAR HEMOGLOBIN 28.9 PG (27.0-31.0); MEAN CORPUSCULAR HGB CONC 33.6 g/dL (33.0-36.5); MONOCYTES # (AUTO) 0.5 X10'3 (0-0.9); MONOCYTES % (AUTO) 8.4 % (2-12); NEUTROPHILS # (AUTO) 3.5 X10'3 (1.8-7.7); NEUTROPHILS % (AUTO) 61.8 % (42-75); PLATELET COUNT 200 X10'3 (140-440); RED BLOOD COUNT 4.16 X10'6 (4.70-6.10); RED CELL DISTRIBUTION WIDTH 13.8 % (11.5-14.5); WHITE BLOOD COUNT 5.6 X10'3 (4.5-11.0)
[2020-08-15 07:17] LABS: ALANINE AMINOTRANSFERASE 40 U/L (12-78); ALBUMIN/GLOBULIN RATIO 0.8 (1.1-1.5); ALKALINE PHOSPHATASE 119 IU/L (46-116); ANION GAP 7 (8-16); ASPARTATE AMINO TRANSFERASE 35 U/L (10-37); BILIRUBIN,TOTAL 0.7 MG/DL (0.1-1.0); BLOOD UREA NITROGEN 31 MG/DL (7-18); BUN/CREATININE RATIO 25.8 (5.4-32.0); CALCIUM 8.5 MG/DL (8.5-10.1); CHLORIDE 105 MMOL/L (99-107); GLUCOSE 97 MG/DL (70-104); MAGNESIUM 1.9 MG/DL (1.5-2.4); POTASSIUM 4.2 MMOL/L (3.5-5.1); SODIUM 140 MMOL/L (135-145); TOTAL CARBON DIOXIDE 28.2 MMOL/L (24-32); TOTAL PROTEIN 6.7 G/DL (6.4-8.2); eGFR 61 ML/MIN
[2020-08-15] MEDS: K and/or MAG REPLACEMENT MC SCH ×2 (08:00→20:17)
[2020-08-15] MEDS: aspirin 81mg tablet.DR PO SCH (08:41)
[2020-08-15] MEDS: furosemide 20MG tablet PO SCH (08:41)
[2020-08-15] MEDS: lisinopril 2.5mg tablet PO SCH (08:42)
[2020-08-15] MEDS: carvedilol 6.25mg tablet PO SCH ×2 (08:42→20:16)
[2020-08-15 11:00] VITALS: BP 97/64
[2020-08-15 15:00] VITALS: BP 114/81
[2020-08-15 18:00] VITALS: BP 123/77
--- NOTE | 2020-08-15 18:27 | NUR ---
Problems reprioritized. Patient report given, questions answered & plan of care reviewed with Mason VARELA.
[2020-08-15 22:00] VITALS: BP 120/88
[2020-08-15] MEDS: HYDROcodone/acetaminophen 5mg/325mg tablet PO PRN (22:22)
[2020-08-16 02:00] VITALS: BP 116/67
--- NOTE | 2020-08-16 06:00 | NUR ---
Patient in room PCU 3016. I have received report from AVERY Cuevas and had the opportunity to ask questions and assume patient care.
[2020-08-16 07:00] VITALS: BP 121/86
[2020-08-16 07:00] LABS: BASOPHILS # (AUTO) 0.1 X10'3 (0-0.2); BASOPHILS % (AUTO) 1.3 % (0-1); EOSINOPHILS # (AUTO) 0.2 X10'3 (0-0.9); EOSINOPHILS % (AUTO) 3.8 % (0-6); HEMATOCRIT 36.7 % (42.0-52.0); HEMOGLOBIN 12.3 g/dl (14.0-17.9); LYMPHOCYTES # (AUTO) 1.4 X10'3 (1.1-4.8); LYMPHOCYTES % (AUTO) 26.7 % (21-51); MEAN CORPUSCULAR HEMOGLOBIN 28.8 PG (27.0-31.0); MEAN CORPUSCULAR HGB CONC 33.4 g/dL (33.0-36.5); MEAN CORPUSCULAR VOLUME 86.3 FL (78-98); MONOCYTES # (AUTO) 0.5 X10'3 (0-0.9); MONOCYTES % (AUTO) 9.7 % (2-12); NEUTROPHILS % (AUTO) 58.5 % (42-75); PLATELET COUNT 203 X10'3 (140-440); RED BLOOD COUNT 4.25 X10'6 (4.70-6.10); RED CELL DISTRIBUTION WIDTH 14.2 % (11.5-14.5); WHITE BLOOD COUNT 5.1 X10'3 (4.5-11.0)
[2020-08-16 07:44] LABS: ALANINE AMINOTRANSFERASE 37 U/L (12-78); ALBUMIN 3.2 G/DL (3.4-5.0); ALBUMIN/GLOBULIN RATIO 0.8 (1.1-1.5); ALKALINE PHOSPHATASE 122 IU/L (46-116); ANION GAP 10 (8-16); ASPARTATE AMINO TRANSFERASE 30 U/L (10-37); BILIRUBIN,TOTAL 0.5 MG/DL (0.1-1.0); BLOOD UREA NITROGEN 29 MG/DL (7-18); BUN/CREATININE RATIO 25.4 (5.4-32.0); CALCIUM 8.5 MG/DL (8.5-10.1); CHLORIDE 105 MMOL/L (99-107); CREATININE 1.14 MG/DL (0.60-1.10); GLUCOSE 100 MG/DL (70-104); MAGNESIUM 2.1 MG/DL (1.5-2.4); SODIUM 140 MMOL/L (135-145); TOTAL CARBON DIOXIDE 25.4 MMOL/L (24-32); eGFR 65 ML/MIN
[2020-08-16] MEDS: K and/or MAG REPLACEMENT MC SCH (08:00)
[2020-08-16] MEDS: aspirin 81mg tablet.DR PO SCH ×2 (08:56→09:07)
[2020-08-16] MEDS: carvedilol 6.25mg tablet PO SCH ×2 (08:56→09:08)
[2020-08-16] MEDS: furosemide 20MG tablet PO SCH ×2 (08:56→09:07)
[2020-08-16] MEDS: lisinopril 2.5mg tablet PO SCH ×2 (08:57→09:07)
--- NOTE | 2020-08-16 09:01 | NUR ---
Patient dropped medications on the floor. Recovered all meds and disposed of. Will pull again and readminister.
[2020-08-16 11:00] VITALS: BP 119/82
--- NOTE | 2020-08-16 13:36 | NUR ---
Patient safe for discharge per MD orders, discharge instructions reviewed and questions answered, belongings stayed in patient room, prescriptions called into [facility] 30 day supplies, patient will get PCP and make appt/get referral to research geneticist, $1,700 from registration, life vest on and charged, tele and PIV DC'd.
--- NOTE | 2020-08-18 11:27 | NUR ---
CASE MANAGEMENT DISCHARGE FOLLOW UP: Spoke with pt via telephone. Reports that he is "doing okay" however still feeling SOB with orthopnea and is having a "helluva time breathing," states breathing is no worse but no better than at time of discharge; denies edema, CP, methamphetamine use. Pt states still smoking, advised pt to stop smoking, pt would like community resources for smoking cessation, advised pt that [facility] provides smoking cessation sessions and to start there as he is already trying to establish care there for a PCP. Advised that they also can help with drug recovery. Pt verbalizes understanding that he needs to not use tobacco and methamphetamine due to his current condition. Educated pt that he needs to return to ED if symptoms get worse or do not improve, pt verbalizes understanding.. Verbalizes understanding of medications, states picked up medications and is taking as directed. Verbalizes compliance with MD discharge instructions. Verbalizes understanding of the importance in making/keeping follow-up appointments, has new pt paperwork for [facility] and will turn that in. States no further questions/concerns at this time. Reiterated to pt to seek emergent care if he does not get better or if he gets worse, he verbalizes understanding.
== END 2020-08-16 13:39 | disposition home or self-care (01) | DRG 190 ==
LOC: ER 20:36 → UNDOADMIN 08-14 00:08 → ED HOLD 08-14 00:08 → PCU 3S 08-14 00:08 → ED HOLD 08-14 01:10 → PCU 3S 08-14 01:10
PROVIDERS: ADMIT Family Medicine; ATTEND Internal Medicine
DX: I21.4 Non-ST elevation (NSTEMI) myocardial infarction (principal); I13.0 Hypertensive heart and chronic kidney disease with heart failure and stage 1 through stage 4 chronic kidney disease, or unspecified chronic kidney disease; J44.9 Chronic obstructive pulmonary disease, unspecified; F12.90 Cannabis use, unspecified, uncomplicated; F15.90 Other stimulant use, unspecified, uncomplicated; Z60.2 Problems related to living alone; I50.23 Acute on chronic systolic (congestive) heart failure; B19.20 Unspecified viral hepatitis C without hepatic coma; F17.210 Nicotine dependence, cigarettes, uncomplicated; N17.9 Acute kidney failure, unspecified; N18.9 Chronic kidney disease, unspecified; I44.7 Left bundle-branch block, unspecified; Z91.14 Patient's other noncompliance with medication regimen; Z79.82 Long term (current) use of aspirin; Z88.5 Allergy status to narcotic agent; Z88.0 Allergy status to penicillin
CPT/HCPCS: 36415; 71045; 80053; 80305; 80320; 83735; 83880; 84484; 85025; 85610; 85730; 87081; 93005; 99285; G0378; J1940

== ENCOUNTER 2020-12-08 06:30 | Day surgery (SDC) | payer MEDICAID ==
[2020-12-08] VITALS (10 sets, daily range): BP systolic 99–124; BP diastolic 50–84
[~2020-12-08] VITALS: Ht 172.7 cm; Wt 62.5 kg
[2020-12-08] MEDS ORDERED: vancomycin/NS 1 GM ADD-VANTAGE 250 ML X 1 DOSE IV ONE (06:50)
[2020-12-08] MEDS ORDERED: diphenhydrAMINE 25mg capsule PO PRN (06:50)
[2020-12-08] MEDS ORDERED: SPIR25TA5 PO (06:58)
[2020-12-08] MEDS ORDERED: CARV25TA2 PO (06:59)
[2020-12-08] MEDS: normal saline 1,000 ML IV SCH ×2 (07:37→13:19)
[2020-12-08 07:43] LABS: BASOPHILS # (AUTO) 0.1 X10'3 (0-0.2); BASOPHILS % (AUTO) 1.5 % (0-1); EOSINOPHILS # (AUTO) 0.3 X10'3 (0-0.9); EOSINOPHILS % (AUTO) 4.8 % (0-6); HEMATOCRIT 37.5 % (42.0-52.0); HEMOGLOBIN 12.6 g/dl (14.0-17.9); LYMPHOCYTES # (AUTO) 1.6 X10'3 (1.1-4.8); LYMPHOCYTES % (AUTO) 25.4 % (21-51); MEAN CORPUSCULAR HEMOGLOBIN 28.5 PG (27.0-31.0); MEAN CORPUSCULAR HGB CONC 33.7 g/dL (33.0-36.5); MEAN CORPUSCULAR VOLUME 84.5 FL (78-98); MONOCYTES # (AUTO) 0.8 X10'3 (0-0.9); MONOCYTES % (AUTO) 12.2 % (2-12); NEUTROPHILS # (AUTO) 3.5 X10'3 (1.8-7.7); NEUTROPHILS % (AUTO) 56.1 % (42-75); PLATELET COUNT 198 X10'3 (140-440); RED BLOOD COUNT 4.43 X10'6 (4.70-6.10); RED CELL DISTRIBUTION WIDTH 19.6 % (11.5-14.5); WHITE BLOOD COUNT 6.3 X10'3 (4.5-11.0)
[2020-12-08 08:06] LABS: ALBUMIN 3.8 G/DL (3.4-5.0); ANION GAP 10 (8-16); BLOOD UREA NITROGEN 22 MG/DL (7-18); BUN/CREATININE RATIO 17.1 (5.4-32.0); CALCIUM 8.5 MG/DL (8.5-10.1); CHLORIDE 103 MMOL/L (99-107); CREATININE 1.29 MG/DL (0.60-1.10); GLUCOSE 96 MG/DL (70-104); SODIUM 139 MMOL/L (135-145); TOTAL CARBON DIOXIDE 26.4 MMOL/L (24-32); eGFR 56 ML/MIN
[2020-12-08 08:08] LABS: POTASSIUM 4.5 MMOL/L (3.5-5.1)
[2020-12-08 08:43] LABS: PLATELET ESTIMATE NORMAL
[2020-12-08 08:44] LABS: ANISOCYTOSIS 2+; ELLIPTOCYTES 1+
[2020-12-08] MEDS ORDERED: iohexol 350MG/ML 100ml bottle IV ONE ×2 (08:47→10:14)
[2020-12-08] MEDS ORDERED: LIDOcaine 1% (10mg/ml)w/preservative injection 20ml MDV ONE (08:47)
[2020-12-08] MEDS ORDERED: fentaNYL/PF 50MCG/1 ML 2ML syringe ONE ×2 (08:47→10:11)
[2020-12-08] MEDS ORDERED: iohexol 350 MG/ML 50ML vial IV ONE ×2 (08:47→10:12)
[2020-12-08] MEDS ORDERED: midazolam 1 mg/ML 2ml injection ONE ×5 (08:47→10:45)
[2020-12-08] MEDS ORDERED: vancomycin 1,000mg inj ONE (10:11)
[2020-12-08] MEDS ORDERED: LIDOCAINE 2% w/EPI 1:100:000 30mL injection MDV**cath lab 1 only ONE (10:16)
[2020-12-08] MEDS ORDERED: proCHLORperazine 10 MG/2 ml inj ONE (10:43)
[2020-12-08] MEDS ORDERED: HYDROcodone/acetaminophen 10/325mg tab PO PRN (12:45)
[2020-12-08] MEDS ORDERED: ondansetron/PF 4mg/2ml inj IV PRN (12:45)
[2020-12-08] MEDS ORDERED: proCHLORperazine 10 MG/2 ml inj IV PRN (12:45)
[2020-12-08] MEDS ORDERED: HYDROcodone/acetaminophen 5mg/325mg tablet PO PRN (12:45)
[2020-12-08] MEDS ORDERED: furosemide 40mg/4ml inj IV ONE (13:00)
--- NOTE | 2020-12-08 13:35 | NUR ---
Pt voided 100ml dark yellow
== END 2020-12-08 15:12 | disposition home or self-care (01) ==
LOC: SSTAY O 06:30
PROVIDERS: ATTEND Internal Medicine Cardiovascular Disease
DX: R94.31 Abnormal electrocardiogram [ECG] [EKG] (principal); R06.09 Other forms of dyspnea; I42.0 Dilated cardiomyopathy; I44.7 Left bundle-branch block, unspecified; I10 Essential (primary) hypertension; F17.210 Nicotine dependence, cigarettes, uncomplicated; Z88.0 Allergy status to penicillin; Z88.5 Allergy status to narcotic agent; Z79.82 Long term (current) use of aspirin; Z79.899 Other long term (current) drug therapy
CPT/HCPCS: 33225; 33249; 36415; 71045; 80048; 83735; 85025; 85610; 93005; 93460; 99152; 99153; C1760; C1769; C1882; C1887; C1894; C1895; C1900; J0780; J1644; J1940; J2001; J2250; J3010; J3370; J7030; Q0163; Q9967; 85008; A4565; A4620; A6258; C1751

== ENCOUNTER 2021-03-07 11:22 | Emergency (ER) | payer MEDICAID ==
[~2021-03-07] VITALS: Ht 172.7 cm; Wt 65.9 kg
[~2021-03-07 11:22] MED LIST changes: -ALBU6.7H9 INH; +CARV25TA2 PO; -CARV6.253 PO; +LISI2.5T14 PO; -LISI2.5T2 PO; -POTA10TA36 PO; +SPIR25TA5 PO
[2021-03-07] MEDS ORDERED: ondansetron 4mg rapidly disintigrating tab PO ONE ×2 (11:50→14:10)
[2021-03-07] MEDS ORDERED: TETanus/Pertussis (Acell)/Diphther VAC/PF (Tdap-Adult) 0.5ml syringe IMVAC ONE (11:50)
[2021-03-07] MEDS ORDERED: morphine 4 MG/ML inj SYRINge IM ONE (11:50)
[2021-03-07] MEDS ORDERED: LIDOcaine 1% W/epiNEPHrine 1:200,000 10ml vial IJ ONE (11:50)
[2021-03-07] MEDS ORDERED: ceFAZolin 1gm IM kit IM ONE (12:20)
[2021-03-07] MEDS ORDERED: normal saline 1000ml 1,000 ML IV ONE (12:30)
[2021-03-07] MEDS ORDERED: cefazolin/dext.iso 2gm/100ml 100 ML IV ONE (13:25)
[2021-03-07] MEDS ORDERED: diphenhydrAMINE 50 mg/ml inj IV ONE (13:25)
--- NOTE | 2021-03-07 13:50 | NUR ---
NO NOTED ADVERSE REACTION FROM CEFAZOLIN,WE WILL MONITOR.
[2021-03-07] MEDS ORDERED: HYDROcodone/acetaminophen 5mg/325mg tablet PO ONE (14:10)
[2021-03-07] MEDS ORDERED: acetaminophen 325mg tablet PO PRN (14:20)
[2021-03-07] MEDS ORDERED: magnesium Cl slow-release 64mg tablet PO PRN (14:20)
[2021-03-07] MEDS ORDERED: normal saline 1000ml 1,000 ML IV SCH (14:20)
[2021-03-07] MEDS ORDERED: potassium Cl 20 mEq SR tablet PO PRN ×2 (14:20)
[2021-03-07] MEDS ORDERED: magnesium 4gm in 100ml NS 100 ML IV PRN (14:20)
[2021-03-07] MEDS ORDERED: potassium Cl 40MEQ/1/2NS 520ml 520 ML IV PRN ×2 (14:20)
[2021-03-07] MEDS ORDERED: ondansetron/PF 4mg/2ml inj IV PRN ×2 (14:20→16:00)
[2021-03-07] MEDS ORDERED: magnesium 2GM in 50ml NS 50 ML IV PRN (14:20)
[2021-03-07] MEDS ORDERED: morphine 2 MG/ML inj. syringe IV PRN ×2 (14:20→16:00)
[2021-03-07] MEDS ORDERED: PERFLUTREN PROTEIN-A MICROSPHR (Optison) 0.22 MG/ML 3ML VIAL IV ONE (14:25)
[2021-03-07] MEDS ORDERED: bacitracin 15gm ointment TP ONE (15:39)
[2021-03-07] MEDS ORDERED: BUPIVAcaine/PF 2.5mg/ml (0.25%) 10ml vial ONE (15:39)
[2021-03-07] MEDS ORDERED: proCHLORperazine 10 MG/2 ml inj IV PRN (16:00)
[2021-03-07] MEDS ORDERED: ringers solution, lacted 1,000 ML IV SCH (16:00)
[2021-03-07] MEDS ORDERED: morphine 4 MG/ML inj SYRINge IV PRN (16:00)
[2021-03-07] MEDS ORDERED: meperidine/PF 25mg/ml syringe IV PRN ×3 (16:00)
[2021-03-07] MEDS ORDERED: fentaNYL/PF 50MCG/1 ML 2ML syringe ONE (16:01)
[2021-03-07] MEDS ORDERED: midazolam 1 mg/ML 2ml injection ONE (16:02)
[2021-03-07] MEDS ORDERED: propofol inj 20 ML IV ONE (16:02)
[2021-03-07] MEDS ORDERED: ceFAZolin 1000mg inj ONE ×2 (16:14)
[2021-03-07 16:54] VITALS: BP 103/61
--- NOTE | 2021-03-07 16:54 | NUR ---
ASSUME CARE PT AWAKE DENIES PAIN NO DISTRESS CONT TO MONITOR Addendum: 03/07/21 at 1819 by Victoria Marquez RN Amended: Links added.
[2021-03-07 17:04] VITALS: BP 108/66
[2021-03-07 17:14] VITALS: BP 100/64
[2021-03-07 17:24] VITALS: BP 95/65
[2021-03-07 17:34] VITALS: BP 100/65
--- NOTE | 2021-03-07 18:00 | NUR ---
PT AWAKE VSS NO DISTRESS DENIES PAIN SOFT DRESSING TO LEFT HAND CDI +CMS TO THE HAND AND FINGERS FRED POS MEETS CRITERIA TO GO HOME RIDE CALLED, DC INSTR GIVEN NO ?S OR CONCERNS Addendum: 03/07/21 at 1819 by Victoria Marquez RN Amended: Links added.
[2021-03-07] MEDS ORDERED: K and/or MAG REPLACEMENT MC SCH (20:00)
== END 2021-03-07 18:04 | disposition home or self-care (01) ==
LOC: ER 11:22 → INTOOBSV 14:21 → UNDOADMOB 14:21 → ED HOLD 14:21 → ER 18:04 → UNDODISOB 18:04
DX: S68.621A Partial traumatic transphalangeal amputation of left index finger, initial encounter (principal); M79.642 Pain in left hand; W31.2XXA Contact with powered woodworking and forming machines, initial encounter; F12.10 Cannabis abuse, uncomplicated; F15.10 Other stimulant abuse, uncomplicated; I11.9 Hypertensive heart disease without heart failure; J44.9 Chronic obstructive pulmonary disease, unspecified; Z20.822 Contact with and (suspected) exposure to COVID-19; Y93.89 Activity, other specified; Y92.89 Other specified places as the place of occurrence of the external cause; Y99.8 Other external cause status
CPT/HCPCS: 26951; 73140; 82948; 87635; 90471; 90715; 96361; 96365; 96375; 99285; A6222; J0690; J1200; J2250; J2704; J3010; J3490; J7030; Z7506; Z7512; 64450; A6258; A6449; A7000; G0378

== ENCOUNTER 2021-03-10 14:36 | Emergency (ER) | payer MEDICAID ==
[~2021-03-10] VITALS: Ht 172.7 cm; Wt 65.9 kg
[2021-03-10] MEDS ORDERED: CEPH250T PO (14:44)
== END 2021-03-10 16:40 | disposition home or self-care (01) ==
LOC: ER 14:37
DX: S68.111D Complete traumatic metacarpophalangeal amputation of left index finger, subsequent encounter (principal); I11.0 Hypertensive heart disease with heart failure; I50.9 Heart failure, unspecified; J44.9 Chronic obstructive pulmonary disease, unspecified; F12.90 Cannabis use, unspecified, uncomplicated; F15.90 Other stimulant use, unspecified, uncomplicated; Z76.0 Encounter for issue of repeat prescription; Z86.19 Personal history of other infectious and parasitic diseases; Z98.890 Other specified postprocedural states; Z60.2 Problems related to living alone; Z88.0 Allergy status to penicillin; Z88.5 Allergy status to narcotic agent; Z79.82 Long term (current) use of aspirin; Z79.2 Long term (current) use of antibiotics; Z79.899 Other long term (current) drug therapy; X58.XXXD Exposure to other specified factors, subsequent encounter
CPT/HCPCS: 99283

== ENCOUNTER 2021-03-16 15:52 | Emergency (ER) | payer MEDICAID ==
[~2021-03-16] VITALS: Ht 175.3 cm; Wt 65.9 kg
[~2021-03-16 15:52] MED LIST changes: +CEPH250T PO
[2021-03-16 17:58] VITALS: BP 138/91
== END 2021-03-16 18:42 | disposition home or self-care (01) ==
LOC: ER 15:52
DX: Z48.01 Encounter for change or removal of surgical wound dressing (principal); I11.0 Hypertensive heart disease with heart failure; I50.9 Heart failure, unspecified; J44.9 Chronic obstructive pulmonary disease, unspecified; F12.90 Cannabis use, unspecified, uncomplicated; F15.90 Other stimulant use, unspecified, uncomplicated; Z86.19 Personal history of other infectious and parasitic diseases; Z88.0 Allergy status to penicillin; Z79.82 Long term (current) use of aspirin; Z79.899 Other long term (current) drug therapy
CPT/HCPCS: 99281

== ENCOUNTER 2021-08-11 20:16 | Emergency (ER) | payer MEDICAID ==
[~2021-08-11] VITALS: Ht 172.7 cm; Wt 63.0 kg
[~2021-08-11 20:16] MED LIST changes: -CEPH250T PO
[2021-08-11 21:06] VITALS: BP 103/72
[2021-08-12] MEDS ORDERED: ERYT1OIN6 LEFTEYE (10:28)
== END 2021-08-11 23:47 | disposition left against medical advice (07) ==
LOC: ER 20:17
DX: H57.12 Ocular pain, left eye (principal); Z53.21 Procedure and treatment not carried out due to patient leaving prior to being seen by health care provider

== ENCOUNTER 2021-08-12 07:16 | Emergency (ER) | payer MEDICAID ==
[~2021-08-12] VITALS: Ht 172.7 cm; Wt 65.9 kg
[2021-08-12 07:25] VITALS: BP 143/86
[2021-08-12] MEDS ORDERED: tropicamide 0.5% ophthalmic drops 15ml LEFTEYE ONE (08:35)
[2021-08-12] MEDS ORDERED: proparacaine 0.5% ophthalmic drops 15ml LEFTEYE ONE (08:35)
[2021-08-12] MEDS ORDERED: erythromycin ophthalmic ointment 1gm tube LEFTEYE ONE (09:50)
[2021-08-12] MEDS ORDERED: ERYT1OIN6 LEFTEYE (10:28)
== END 2021-08-12 10:57 | disposition home or self-care (01) ==
LOC: ER 07:17
DX: S05.02XA Injury of conjunctiva and corneal abrasion without foreign body, left eye, initial encounter (principal); H20.9 Unspecified iridocyclitis; H57.12 Ocular pain, left eye; I11.0 Hypertensive heart disease with heart failure; I50.9 Heart failure, unspecified; J44.9 Chronic obstructive pulmonary disease, unspecified; F12.90 Cannabis use, unspecified, uncomplicated; F15.90 Other stimulant use, unspecified, uncomplicated; Z86.19 Personal history of other infectious and parasitic diseases; Z95.0 Presence of cardiac pacemaker; Z98.890 Other specified postprocedural states; Z60.2 Problems related to living alone; Z88.0 Allergy status to penicillin; Z88.5 Allergy status to narcotic agent; Z79.82 Long term (current) use of aspirin; Z79.2 Long term (current) use of antibiotics; Z79.899 Other long term (current) drug therapy; X58.XXXA Exposure to other specified factors, initial encounter; Y93.89 Activity, other specified; Y92.89 Other specified places as the place of occurrence of the external cause; Y99.8 Other external cause status
CPT/HCPCS: 99284

== ENCOUNTER 2023-05-26 00:38 | Emergency (ER) | payer MEDICARE, MEDICAID ==
[~2023-05-26] VITALS: Ht 172.7 cm; Wt 69.1 kg
[~2023-05-26 00:38] MED LIST changes: -CARV25TA2 PO; +CARV6.253 PO; -FURO-150 PO; +FURO20TA4 PO; -LISI2.5T14 PO; +LISI5TAB22 PO; +NICO-687 TD; +SPIR25TA PO; -SPIR25TA5 PO
[2023-05-26 01:37] VITALS: BP 138/99; PULSE 104; RESP 16; TEMP 97.7; O2SAT 96
[2023-05-26 02:20] LABS: BASOPHILS # (AUTO) 0.1 X10'3 (0-0.2); BASOPHILS % (AUTO) 0.9 % (0-1); EOSINOPHILS # (AUTO) 0.2 X10'3 (0-0.9); EOSINOPHILS % (AUTO) 2.5 % (0-6); HEMATOCRIT 37.9 % (42.0-52.0); HEMOGLOBIN 12.5 g/dl (14.0-17.9); LYMPHOCYTES # (AUTO) 1.1 X10'3 (1.1-4.8); LYMPHOCYTES % (AUTO) 12.7 % (21-51); MEAN CORPUSCULAR HEMOGLOBIN 29.7 PG (27.0-31.0); MEAN CORPUSCULAR HGB CONC 32.9 g/dL (33.0-36.5); MEAN CORPUSCULAR VOLUME 90.3 FL (78-98); MEAN PLATELET VOLUME 7.8 FL (7.4-10.4); MONOCYTES # (AUTO) 0.7 X10'3 (0-0.9); MONOCYTES % (AUTO) 8.9 % (2-12); NEUTROPHILS # (AUTO) 6.3 X10'3 (1.8-7.7); PLATELET COUNT 250 X10'3 (140-440); RED CELL DISTRIBUTION WIDTH 15.2 % (11.5-14.5); WHITE BLOOD COUNT 8.3 X10'3 (4.5-11.0)
[2023-05-26 02:29] LABS: ALANINE AMINOTRANSFERASE 33 U/L (12-78); ALBUMIN 3.4 G/DL (3.4-5.0); ALKALINE PHOSPHATASE 111 IU/L (46-116); ANION GAP 6 (8-16); ASPARTATE AMINO TRANSFERASE 22 U/L (10-37); BILIRUBIN,TOTAL 0.6 MG/DL (0.1-1.0); BLOOD UREA NITROGEN 27 MG/DL (7-18); BUN/CREATININE RATIO 19.1 (10.0-20.0); CALCIUM 8.5 MG/DL (8.5-10.1); CHLORIDE 103 MMOL/L (99-107); CREATININE 1.41 MG/DL (0.60-1.10); GLUCOSE 98 MG/DL (70-104); POTASSIUM 4.4 MMOL/L (3.5-5.1); SODIUM 140 MMOL/L (135-145); TOTAL CARBON DIOXIDE 31.1 MMOL/L (24-32); TOTAL PROTEIN 6.9 G/DL (6.4-8.2); eCRCL 51 ML/MIN; eGFR 50 ML/MIN
[2023-05-26 02:37] LABS: PRO BRAIN NATRIURETIC PEPTIDE 6926 PG/ML (0-125)
== END 2023-05-26 04:47 | disposition left against medical advice (07) ==
LOC: ER 00:39
DX: R06.02 Shortness of breath (principal); Z53.21 Procedure and treatment not carried out due to patient leaving prior to being seen by health care provider
CPT/HCPCS: 36415; 71045; 80053; 83880; 84484; 85025; 93005; 99281